=== PATIENT | female | born 1950 | race Caucasian/White ===

== ENCOUNTER 2017-06-27 19:24 | Emergency (ER) | payer MEDICARE, MEDICAID ==
[~2017-06-27] VITALS: Ht 5032.2 cm; Wt 70.5 kg
[2017-06-27 20:12] LABS: BASOPHILS # (AUTO) 0.1 X10'3 (0-0.2); BASOPHILS % (AUTO) 0.4 % (0-1); EOSINOPHILS # (AUTO) 0.2 X10'3 (0-0.9); EOSINOPHILS % (AUTO) 1.4 % (0-6); HEMATOCRIT 37.2 % (35.0-45.0); HEMOGLOBIN 12.3 g/dl (12.0-16.0); LYMPHOCYTES % (AUTO) 45.8 % (21-51); MEAN CORPUSCULAR HEMOGLOBIN 27.4 PG (27.0-31.0); MEAN CORPUSCULAR HGB CONC 33.2 % (33.0-36.5); MEAN CORPUSCULAR VOLUME 82.5 FL (78-98); MEAN PLATELET VOLUME 10.4 FL (7.4-10.4); MONOCYTES # (AUTO) 1.1 X10'3 (0-0.9); MONOCYTES % (AUTO) 8.7 % (2-12); NEUTROPHILS # (AUTO) 5.7 X10'3 (1.8-7.7); NEUTROPHILS % (AUTO) 43.7 % (42-75); PLATELET COUNT 296 X10'3 (140-440); RED BLOOD COUNT 4.51 X10'6 (4.20-5.60); RED CELL DISTRIBUTION WIDTH 14.7 % (11.5-14.5)
[2017-06-27 20:28] LABS: ALANINE AMINOTRANSFERASE 34 U/L (12-78); ALBUMIN 3.5 G/DL (3.4-5.0); ALBUMIN/GLOBULIN RATIO 0.9 (1.1-1.5); ALKALINE PHOSPHATASE 126 IU/L (46-116); ANION GAP 11 (8-16); ASPARTATE AMINO TRANSFERASE 18 U/L (10-37); BILIRUBIN,TOTAL 0.2 MG/DL (0.1-1.0); BLOOD UREA NITROGEN 19 MG/DL (7-18); BUN/CREATININE RATIO 19.4 (6.6-38.0); CALCIUM 8.9 MG/DL (8.5-10.1); CHLORIDE 106 MMOL/L (99-107); CREATININE 0.98 MG/DL (0.40-0.90); GLUCOSE 95 MG/DL (70-104); POTASSIUM 3.4 MMOL/L (3.5-5.1); SODIUM 143 MMOL/L (135-145); TOTAL CARBON DIOXIDE 26.3 MMOL/L (24-32); TOTAL PROTEIN 7.5 G/DL (6.4-8.2); eGFR 57 ML/MIN
[2017-06-27 20:29] LABS: CLARITY,URINE CLEAR (Clear); COLOR,URINE YELLOW (Yellow); GLUCOSE, URINE NEGATIVE (Neg); KETONES,URINE NEGATIVE (Neg); LEUKOCYTE ESTERASE ,URINE NEGATIVE (Neg); NITRITES, URINE NEGATIVE (Neg); OCCULT BLOOD,URINE SMALL (Neg); PROTEIN,URINE 30 mg/dl (Neg); UROBILINOGEN,URINE 0.2 E.U/dL (0.2-1.0)
[2017-06-27 20:33] LABS: UA COLLECTION TYPE CLN CATCH MIDSTREAM
[2017-06-27 20:37] LABS: AMORPHOUS URATES 1+; BACTERIA,URINE FEW /HPF (Neg); MUCUS STRANDS NONE SEEN /LPF (Neg); SQUAMOUS EPITHELIAL CELL,UR FEW /LPF (FEW); WBC,URINE 0-4 /HPF (0-4)
[2017-06-27] MEDS ORDERED: NITR100C6 PO (20:37)
[2017-06-27] MEDS ORDERED: nitrofuran/nitrofuran macrocrysal 100 MG capsule PO ONE (20:40)
[2017-06-27 20:51] VITALS: BP 145/65
== END 2017-06-27 20:52 | disposition home or self-care (01) ==
LOC: ER 19:24
DX: R31.9 Hematuria, unspecified (principal); R35.0 Frequency of micturition; E78.00 Pure hypercholesterolemia, unspecified; I10 Essential (primary) hypertension; Z88.5 Allergy status to narcotic agent; Z88.0 Allergy status to penicillin
CPT/HCPCS: 36415; 80053; 81001; 85025; 99284

== ENCOUNTER 2017-12-26 04:56 | Emergency (ER) | payer MEDICARE, MEDICAID ==
[~2017-12-26] VITALS: Ht 154.9 cm; Wt 70.0 kg
[~2017-12-26 04:56] MED LIST: NITR100C6 PO
[2017-12-26 04:59] VITALS: BP 158/95
[2017-12-26 05:33] LABS: URINE AMPHETAMINE SCREEN NEGATIVE (Neg); URINE BARBITUATE SCREEN NEGATIVE (Neg); URINE BENZODIAZEPINES SCREEN NEGATIVE (Neg); URINE CANNABINOID SCREEN NEGATIVE (Neg); URINE COCAINE SCREEN NEGATIVE (Neg); URINE METHADONE SCREEN NEGATIVE (Neg); URINE OPIATE SCREEN NEGATIVE (Neg); URINE PHENCYCLIDINE SCREEN NEGATIVE (Neg)
[2017-12-26 05:49] LABS: CLARITY,URINE CLEAR (Clear); COLOR,URINE YELLOW (Yellow); GLUCOSE, URINE NEGATIVE (Neg); KETONES,URINE NEGATIVE (Neg); LEUKOCYTE ESTERASE ,URINE TRACE (Neg); NITRITES, URINE NEGATIVE (Neg); OCCULT BLOOD,URINE TRACE-LYSED (Neg); PH,URINE 5.5 (4.8-8.0); PROTEIN,URINE 100 mg/dl (Neg); UROBILINOGEN,URINE 0.2 E.U/dL (0.2-1.0)
[2017-12-26 05:50] LABS: UA COLLECTION TYPE CLN CATCH MIDSTREAM
[2017-12-26 06:01] LABS: BACTERIA,URINE FEW /HPF (Neg); RBC,URINE 0-2 /HPF (0-2)
[2017-12-26 06:02] LABS: CAL OXALATE CRYSTALS 3+ /HPF (NEGATIVE); MUCUS STRANDS MANY /LPF (Neg); SQUAMOUS EPITHELIAL CELL,UR FEW /LPF (FEW)
== END 2017-12-26 05:41 | disposition left against medical advice (07) ==
LOC: ER 04:56
DX: G89.29 Other chronic pain (principal); N23 Unspecified renal colic; Z59.0 Homelessness; E78.00 Pure hypercholesterolemia, unspecified; I10 Essential (primary) hypertension; Z87.442 Personal history of urinary calculi; Z87.440 Personal history of urinary (tract) infections; Z88.0 Allergy status to penicillin; Z88.6 Allergy status to analgesic agent
CPT/HCPCS: 80305; 81001; 87088; 99284

== ENCOUNTER 2017-12-27 22:24 | Emergency (ER) | payer MEDICARE, MEDICAID ==
[~2017-12-27] VITALS: Ht 154.9 cm; Wt 80.6 kg
[2017-12-27 23:54] LABS: CLARITY,URINE CLEAR (Clear); COLOR,URINE YELLOW (Yellow); GLUCOSE, URINE NEGATIVE (Neg); KETONES,URINE NEGATIVE (Neg); LEUKOCYTE ESTERASE ,URINE SMALL (Neg); NITRITES, URINE NEGATIVE (Neg); OCCULT BLOOD,URINE TRACE-LYSED (Neg); PROTEIN,URINE 100 mg/dl (Neg); UROBILINOGEN,URINE 0.2 E.U/dL (0.2-1.0)
[2017-12-28 00:01] LABS: UA COLLECTION TYPE CLN CATCH MIDSTREAM
[2017-12-28 00:03] LABS: BACTERIA,URINE FEW /HPF (Neg); RBC,URINE NONE SEEN /HPF (0-2); SQUAMOUS EPITHELIAL CELL,UR FEW /LPF (FEW)
[2017-12-28] MEDS ORDERED: CEPH-572 PO (00:07)
[2017-12-28] MEDS ORDERED: cephalexin 250mg capsule PO ONE (00:10)
[2017-12-28 00:18] VITALS: BP 170/98
== END 2017-12-28 00:19 | disposition home or self-care (01) ==
LOC: ER 22:27
DX: N39.0 Urinary tract infection, site not specified (principal); E78.00 Pure hypercholesterolemia, unspecified; I10 Essential (primary) hypertension; Z87.442 Personal history of urinary calculi; Z59.0 Homelessness; Z56.0 Unemployment, unspecified; Z88.5 Allergy status to narcotic agent; Z88.0 Allergy status to penicillin; Z79.899 Other long term (current) drug therapy
CPT/HCPCS: 81001; 81003; 87088; 99284

== ENCOUNTER 2018-01-24 19:52 | Emergency (ER) | payer MEDICARE, MEDICAID ==
[~2018-01-24] VITALS: Ht 152.4 cm; Wt 76.0 kg
[2018-01-24 20:45] LABS: CLARITY,URINE CLEAR (Clear); COLOR,URINE YELLOW (Yellow); GLUCOSE, URINE NEGATIVE (Neg); KETONES,URINE NEGATIVE (Neg); LEUKOCYTE ESTERASE ,URINE NEGATIVE (Neg); NITRITES, URINE NEGATIVE (Neg); OCCULT BLOOD,URINE TRACE-LYSED (Neg); PROTEIN,URINE 100 mg/dl (Neg); UROBILINOGEN,URINE 0.2 E.U/dL (0.2-1.0)
[2018-01-24 20:47] LABS: UA COLLECTION TYPE CLN CATCH MIDSTREAM
[2018-01-24 20:55] LABS: BACTERIA,URINE FEW /HPF (Neg)
[2018-01-24 20:56] LABS: FINE GRANULAR CAST 0-3 /LPF (NEGATIVE); MUCUS STRANDS MANY /LPF (Neg); SQUAMOUS EPITHELIAL CELL,UR FEW /LPF (FEW)
[2018-01-24] MEDS ORDERED: SULF1TAB49 PO (21:04)
[2018-01-24 21:16] VITALS: BP 173/91
[2018-01-25] MEDS ORDERED: SULF1TAB49 PO (11:19)
== END 2018-01-24 21:17 | disposition home or self-care (01) ==
LOC: ER 19:52
DX: N39.0 Urinary tract infection, site not specified (principal); Z87.442 Personal history of urinary calculi; I10 Essential (primary) hypertension; E78.00 Pure hypercholesterolemia, unspecified; Z88.5 Allergy status to narcotic agent; Z88.0 Allergy status to penicillin; Z79.899 Other long term (current) drug therapy; Z59.0 Homelessness; Z56.0 Unemployment, unspecified
CPT/HCPCS: 81001; 87088; 99284

== ENCOUNTER 2018-01-25 08:23 | Emergency (ER) | payer MEDICARE, MEDICAID ==
[~2018-01-25] VITALS: Ht 152.4 cm; Wt 75.0 kg
[~2018-01-25 08:23] MED LIST changes: +SULF1TAB49 PO
[2018-01-25 09:00] LABS: BASOPHILS % (AUTO) 0.4 % (0-1); EOSINOPHILS # (AUTO) 0.5 X10'3 (0-0.9); EOSINOPHILS % (AUTO) 5.3 % (0-6); HEMATOCRIT 39.6 % (35.0-45.0); HEMOGLOBIN 12.9 g/dl (12.0-16.0); LYMPHOCYTES # (AUTO) 2.7 X10'3 (1.1-4.8); LYMPHOCYTES % (AUTO) 26.8 % (21-51); MEAN CORPUSCULAR HEMOGLOBIN 27.1 PG (27.0-31.0); MEAN CORPUSCULAR HGB CONC 32.6 % (33.0-36.5); MEAN PLATELET VOLUME 10.1 FL (7.4-10.4); MONOCYTES # (AUTO) 0.7 X10'3 (0-0.9); MONOCYTES % (AUTO) 6.8 % (2-12); NEUTROPHILS # (AUTO) 6.1 X10'3 (1.8-7.7); NEUTROPHILS % (AUTO) 60.7 % (42-75); PLATELET COUNT 336 X10'3 (140-440); RED BLOOD COUNT 4.76 X10'6 (4.20-5.60); RED CELL DISTRIBUTION WIDTH 14.4 % (11.5-14.5); WHITE BLOOD COUNT 10.1 X10'3 (4.5-11.0)
[2018-01-25 09:11] LABS: PROTHROMBIN TIME 10.3 SECONDS (9.0-12.0)
[2018-01-25 09:15] LABS: ALANINE AMINOTRANSFERASE 32 U/L (12-78); ALBUMIN 3.5 G/DL (3.4-5.0); ALBUMIN/GLOBULIN RATIO 0.8 (1.1-1.5); ALKALINE PHOSPHATASE 128 IU/L (46-116); ANION GAP 11 (8-16); ASPARTATE AMINO TRANSFERASE 26 U/L (10-37); BILIRUBIN,TOTAL 0.4 MG/DL (0.1-1.0); BLOOD UREA NITROGEN 14 MG/DL (7-18); BUN/CREATININE RATIO 17.3 (6.6-38.0); CALCIUM 8.8 MG/DL (8.5-10.1); CHLORIDE 104 MMOL/L (99-107); CREATININE 0.81 MG/DL (0.40-0.90); GLUCOSE 149 MG/DL (70-104); LIPASE 200 U/L (73-393); POTASSIUM 3.2 MMOL/L (3.5-5.1); SODIUM 142 MMOL/L (135-145); TOTAL CARBON DIOXIDE 27.3 MMOL/L (24-32); TOTAL PROTEIN 7.7 G/DL (6.4-8.2); eGFR 70 ML/MIN
[2018-01-25 09:16] LABS: HCG SERUM QL NEGATIVE
[2018-01-25 09:28] LABS: CLARITY,URINE SLIGHTLY CLOUDY (Clear); COLOR,URINE STRAW (Yellow); GLUCOSE, URINE NEGATIVE (Neg); KETONES,URINE NEGATIVE (Neg); LEUKOCYTE ESTERASE ,URINE NEGATIVE (Neg); NITRITES, URINE NEGATIVE (Neg); OCCULT BLOOD,URINE TRACE-INTACT (Neg); PROTEIN,URINE 100 mg/dl (Neg); UROBILINOGEN,URINE 0.2 E.U/dL (0.2-1.0)
[2018-01-25 09:29] LABS: UA COLLECTION TYPE NON-SPECIFIED
[2018-01-25 09:33] LABS: HYALINE CASTS 0-3 /LPF (NEGATIVE); MUCUS STRANDS FEW /LPF (Neg)
[2018-01-25 09:34] LABS: BACTERIA,URINE 1+ /HPF (Neg); RBC,URINE 0-2 /HPF (0-2); SQUAMOUS EPITHELIAL CELL,UR MODERATE /LPF (FEW)
[2018-01-25 10:43] VITALS: BP 161/70
[2018-01-25] MEDS ORDERED: SULF1TAB49 PO (11:19)
== END 2018-01-25 11:33 | disposition home or self-care (01) ==
LOC: ER 08:24
DX: N39.0 Urinary tract infection, site not specified (principal); E78.00 Pure hypercholesterolemia, unspecified; I10 Essential (primary) hypertension; Z59.0 Homelessness; Z56.0 Unemployment, unspecified; Z88.5 Allergy status to narcotic agent; Z88.0 Allergy status to penicillin; Z79.2 Long term (current) use of antibiotics; Z79.899 Other long term (current) drug therapy
CPT/HCPCS: 36415; 80053; 81001; 83690; 84703; 85025; 85610; 87088; 99284

== ENCOUNTER 2018-01-27 18:50 | Emergency (ER) | payer MEDICARE, MEDICAID ==
[~2018-01-27] VITALS: Ht 162.6 cm; Wt 73.5 kg
[2018-01-27 19:04] VITALS: BP 127/62
[2018-01-27 19:53] LABS: CLARITY,URINE SLIGHTLY CLOUDY (Clear); COLOR,URINE YELLOW (Yellow); GLUCOSE, URINE NEGATIVE (Neg); KETONES,URINE NEGATIVE (Neg); LEUKOCYTE ESTERASE ,URINE TRACE (Neg); OCCULT BLOOD,URINE TRACE-INTACT (Neg); PH,URINE 5.5 (4.8-8.0); PROTEIN,URINE 100 mg/dl (Neg)
[2018-01-27 20:01] LABS: NITRITES, URINE NEGATIVE (Neg); UA COLLECTION TYPE CLN CATCH MIDSTREAM
[2018-01-27 20:02] LABS: BACTERIA,URINE FEW /HPF (Neg); RBC,URINE 0-2 /HPF (0-2); SQUAMOUS EPITHELIAL CELL,UR FEW /LPF (FEW)
== END 2018-01-27 21:09 | disposition home or self-care (01) ==
LOC: ER 18:51
DX: T73.0XXA Starvation, initial encounter (principal); E78.00 Pure hypercholesterolemia, unspecified; I10 Essential (primary) hypertension; Z59.0 Homelessness; Z56.0 Unemployment, unspecified; Z88.5 Allergy status to narcotic agent; Z88.0 Allergy status to penicillin; Z79.899 Other long term (current) drug therapy; X58.XXXA Exposure to other specified factors, initial encounter
CPT/HCPCS: 81001; 87077; 87088; 99284

== ENCOUNTER 2018-02-02 12:50 | Emergency (ER) | payer MEDICARE, MEDICAID ==
[~2018-02-02] VITALS: Ht 152.4 cm; Wt 70.5 kg
[2018-02-02 13:03] VITALS: BP 142/77
[2018-02-02 14:05] LABS: CLARITY,URINE SLIGHTLY CLOUDY (Clear); COLOR,URINE YELLOW (Yellow); GLUCOSE, URINE NEGATIVE (Neg); KETONES,URINE TRACE mg/dl (Neg); LEUKOCYTE ESTERASE ,URINE NEGATIVE (Neg); NITRITES, URINE NEGATIVE (Neg); OCCULT BLOOD,URINE TRACE-INTACT (Neg); PROTEIN,URINE 100 mg/dl (Neg); UROBILINOGEN,URINE 0.2 E.U/dL (0.2-1.0)
[2018-02-02 14:16] LABS: UA COLLECTION TYPE CLN CATCH MIDSTREAM
[2018-02-02 14:36] LABS: CAL OXALATE CRYSTALS 4+ /HPF (NEGATIVE); HYALINE CASTS 0-3 /LPF (NEGATIVE)
[2018-02-02 14:38] LABS: BACTERIA,URINE FEW /HPF (Neg); MUCUS STRANDS FEW /LPF (Neg); RBC,URINE NONE SEEN /HPF (0-2); SQUAMOUS EPITHELIAL CELL,UR FEW /LPF (FEW); WBC,URINE 0-4 /HPF (0-4)
== END 2018-02-02 14:41 | disposition home or self-care (01) ==
LOC: ER 12:51
DX: E86.0 Dehydration (principal); I10 Essential (primary) hypertension; E78.00 Pure hypercholesterolemia, unspecified; Z59.0 Homelessness; Z56.0 Unemployment, unspecified; Z88.6 Allergy status to analgesic agent; Z88.0 Allergy status to penicillin
CPT/HCPCS: 81001; 99284

== ENCOUNTER 2018-02-03 16:53 | Emergency (ER) | payer MEDICARE, MEDICAID ==
[~2018-02-03] VITALS: Ht 154.9 cm; Wt 74.9 kg
[~2018-02-03 16:53] MED LIST changes: -SULF1TAB49 PO
[2018-02-03 16:57] VITALS: BP 106/58
[2018-02-03 19:15] LABS: CLARITY,URINE SLIGHTLY CLOUDY (Clear); GLUCOSE, URINE NEGATIVE (Neg); KETONES,URINE TRACE mg/dl (Neg); LEUKOCYTE ESTERASE ,URINE NEGATIVE (Neg); NITRITES, URINE NEGATIVE (Neg); OCCULT BLOOD,URINE NEGATIVE (Neg); PH,URINE 5.5 (4.8-8.0); PROTEIN,URINE 100 mg/dl (Neg); UROBILINOGEN,URINE 0.2 E.U/dL (0.2-1.0)
[2018-02-03 19:21] LABS: UA COLLECTION TYPE CLN CATCH MIDSTREAM
[2018-02-03 19:22] LABS: COLOR,URINE DARK YELLOW (Yellow)
[2018-02-03 19:26] LABS: SQUAMOUS EPITHELIAL CELL,UR MODERATE /LPF (FEW)
[2018-02-03 19:27] LABS: AMORPHOUS URATES 1+; BACTERIA,URINE FEW /HPF (Neg)
[2018-02-03 19:28] LABS: RBC,URINE NONE SEEN /HPF (0-2)
== END 2018-02-03 20:02 | disposition home or self-care (01) ==
LOC: ER 16:53
DX: R35.8 Other polyuria (principal); E78.00 Pure hypercholesterolemia, unspecified; I10 Essential (primary) hypertension; Z76.5 Malingerer [conscious simulation]; Z87.442 Personal history of urinary calculi; Z59.0 Homelessness; Z56.0 Unemployment, unspecified; Z87.440 Personal history of urinary (tract) infections; Z88.5 Allergy status to narcotic agent; Z88.0 Allergy status to penicillin
CPT/HCPCS: 81001; 87077; 87088; 87186; 99284

== ENCOUNTER 2018-02-13 14:18 | Emergency (ER) | payer MEDICARE, MEDICAID ==
[2018-02-13 14:28] VITALS: BP 152/77
[2018-02-13] MEDS ORDERED: PERM60CR19 TP (14:45)
== END 2018-02-13 15:07 | disposition home or self-care (01) ==
LOC: ER 14:18
DX: G89.29 Other chronic pain (principal); M54.9 Dorsalgia, unspecified; B85.0 Pediculosis due to Pediculus humanus capitis; E78.00 Pure hypercholesterolemia, unspecified; I10 Essential (primary) hypertension; Z87.442 Personal history of urinary calculi; Z56.0 Unemployment, unspecified; Z59.0 Homelessness
CPT/HCPCS: 99283

== ENCOUNTER 2018-02-21 09:21 | Emergency (ER) | payer MEDICARE, MEDICAID ==
[~2018-02-21] VITALS: Ht 160 cm; Wt 68.2 kg
[~2018-02-21 09:21] MED LIST changes: +PERM60CR19 TP
[2018-02-21 09:24] VITALS: BP 124/62
[2018-02-21] MEDS ORDERED: Permethrin 1% 59ml topical rinse TP ONE (10:20)
[2018-02-21] MEDS ORDERED: PERM60CR19 TP (12:32)
[2018-02-22] MEDS ORDERED: DIPH-423 PO (11:44)
== END 2018-02-21 12:48 | disposition home or self-care (01) ==
LOC: ER 09:22
DX: B85.0 Pediculosis due to Pediculus humanus capitis (principal); E78.00 Pure hypercholesterolemia, unspecified; I10 Essential (primary) hypertension; Z59.0 Homelessness; Z56.0 Unemployment, unspecified; Z87.442 Personal history of urinary calculi; Z88.5 Allergy status to narcotic agent; Z88.0 Allergy status to penicillin; Z79.899 Other long term (current) drug therapy
CPT/HCPCS: 99283

== ENCOUNTER 2018-02-22 11:28 | Emergency (ER) | payer MEDICARE, MEDICAID ==
[~2018-02-22] VITALS: Ht 152.4 cm; Wt 72.0 kg
[2018-02-22 11:33] VITALS: BP 158/76
[2018-02-22] MEDS ORDERED: DIPH-423 PO (11:44)
== END 2018-02-22 11:53 | disposition home or self-care (01) ==
LOC: ER 11:29
DX: R21 Rash and other nonspecific skin eruption (principal); B86 Scabies; E78.00 Pure hypercholesterolemia, unspecified; I10 Essential (primary) hypertension; Z59.0 Homelessness; Z56.0 Unemployment, unspecified; Z87.442 Personal history of urinary calculi; Z88.5 Allergy status to narcotic agent; Z88.0 Allergy status to penicillin
CPT/HCPCS: 99282

== ENCOUNTER 2018-03-01 09:21 | Emergency (ER) | payer MEDICARE, MEDICAID ==
[~2018-03-01] VITALS: Ht 152.4 cm; Wt 73.1 kg
[~2018-03-01 09:21] MED LIST changes: +DIPH-423 PO
[2018-03-01 09:24] VITALS: BP 138/68
[2018-03-01 09:48] LABS: CLARITY,URINE CLEAR (Clear); COLOR,URINE YELLOW (Yellow); GLUCOSE, URINE NEGATIVE (Neg); KETONES,URINE NEGATIVE (Neg); LEUKOCYTE ESTERASE ,URINE TRACE (Neg); NITRITES, URINE NEGATIVE (Neg); OCCULT BLOOD,URINE NEGATIVE (Neg); PROTEIN,URINE 30 mg/dl (Neg); UROBILINOGEN,URINE 0.2 E.U/dL (0.2-1.0)
[2018-03-01 09:53] LABS: UA COLLECTION TYPE CLN CATCH MIDSTREAM
[2018-03-01 09:55] LABS: RBC,URINE NONE SEEN /HPF (0-2)
[2018-03-01 09:56] LABS: BACTERIA,URINE FEW /HPF (Neg); SQUAMOUS EPITHELIAL CELL,UR FEW /LPF (FEW)
[2018-03-01] MEDS ORDERED: SULF1TAB49 PO (10:34)
[2018-03-01] MEDS ORDERED: PERM60CR19 TP (10:34)
== END 2018-03-01 10:56 | disposition home or self-care (01) ==
LOC: ER 09:21
DX: N39.0 Urinary tract infection, site not specified (principal); B85.0 Pediculosis due to Pediculus humanus capitis; I10 Essential (primary) hypertension; E78.00 Pure hypercholesterolemia, unspecified; Z87.442 Personal history of urinary calculi; Z88.6 Allergy status to analgesic agent; Z88.0 Allergy status to penicillin; Z56.0 Unemployment, unspecified; Z59.0 Homelessness; Z60.2 Problems related to living alone; Z87.440 Personal history of urinary (tract) infections
CPT/HCPCS: 81001; 87088; 99284

== ENCOUNTER 2018-03-14 14:02 | Emergency (ER) | payer MEDICARE, MEDICAID ==
[~2018-03-14] VITALS: Ht 157.5 cm; Wt 113.6 kg
[2018-03-14 14:15] VITALS: BP 130/60
== END 2018-03-14 15:06 | disposition home or self-care (01) ==
LOC: ER 14:03
DX: R06.02 Shortness of breath (principal); L98.8 Other specified disorders of the skin and subcutaneous tissue; E78.00 Pure hypercholesterolemia, unspecified; I10 Essential (primary) hypertension; Z87.442 Personal history of urinary calculi; Z59.0 Homelessness; Z56.0 Unemployment, unspecified; Z88.5 Allergy status to narcotic agent; Z88.0 Allergy status to penicillin
CPT/HCPCS: 93005; 99283

== ENCOUNTER 2018-03-14 16:12 | Emergency (ER) | payer MEDICARE, MEDICAID ==
[~2018-03-14] VITALS: Ht 154.9 cm; Wt 45.8 kg
[2018-03-14 16:25] VITALS: BP 121/60
== END 2018-03-14 16:36 | disposition home or self-care (01) ==
LOC: ER 16:13
DX: R06.02 Shortness of breath (principal); E78.00 Pure hypercholesterolemia, unspecified; I10 Essential (primary) hypertension; Z87.442 Personal history of urinary calculi; Z59.0 Homelessness; Z56.0 Unemployment, unspecified; Z88.5 Allergy status to narcotic agent; Z88.0 Allergy status to penicillin; Z79.899 Other long term (current) drug therapy
CPT/HCPCS: 99283

== ENCOUNTER 2018-04-01 16:24 | Emergency (ER) | payer MEDICARE, MEDICAID ==
[~2018-04-01] VITALS: Ht 152.4 cm; Wt 71.6 kg
[2018-04-01 18:11] LABS: ALANINE AMINOTRANSFERASE 27 U/L (12-78); ALBUMIN 3.3 G/DL (3.4-5.0); ALBUMIN/GLOBULIN RATIO 0.7 (1.1-1.5); ALKALINE PHOSPHATASE 112 IU/L (46-116); ANION GAP 17 (8-16); BILIRUBIN,TOTAL 0.2 MG/DL (0.1-1.0); BLOOD UREA NITROGEN 22 MG/DL (7-18); BUN/CREATININE RATIO 21.6 (6.6-38.0); CALCIUM 9.4 MG/DL (8.5-10.1); CHLORIDE 102 MMOL/L (99-107); CREATININE 1.02 MG/DL (0.40-0.90); GLUCOSE 106 MG/DL (70-104); SODIUM 146 MMOL/L (135-145); TOTAL CARBON DIOXIDE 26.9 MMOL/L (24-32); TOTAL PROTEIN 8.1 G/DL (6.4-8.2); eGFR 54 ML/MIN
[2018-04-01 18:14] LABS: POTASSIUM 4.6 MMOL/L (3.5-5.1)
[2018-04-01 18:22] LABS: ASPARTATE AMINO TRANSFERASE 30 U/L (10-37)
[2018-04-01 18:47] LABS: BASOPHILS # (AUTO) 0.1 X10'3 (0-0.2); BASOPHILS % (AUTO) 0.5 % (0-1); EOSINOPHILS # (AUTO) 0.5 X10'3 (0-0.9); EOSINOPHILS % (AUTO) 2.5 % (0-6); HEMATOCRIT 37.7 % (35.0-45.0); HEMOGLOBIN 12.1 g/dl (12.0-16.0); LYMPHOCYTES # (AUTO) 3.6 X10'3 (1.1-4.8); LYMPHOCYTES % (AUTO) 19.9 % (21-51); MEAN CORPUSCULAR HEMOGLOBIN 26.4 PG (27.0-31.0); MEAN CORPUSCULAR VOLUME 82.6 FL (78-98); MEAN PLATELET VOLUME 10.2 FL (7.4-10.4); MONOCYTES # (AUTO) 1.2 X10'3 (0-0.9); MONOCYTES % (AUTO) 6.4 % (2-12); NEUTROPHILS # (AUTO) 12.7 X10'3 (1.8-7.7); NEUTROPHILS % (AUTO) 70.7 % (42-75); PLATELET COUNT 330 X10'3 (140-440); RED BLOOD COUNT 4.56 X10'6 (4.20-5.60); RED CELL DISTRIBUTION WIDTH 14.5 % (11.5-14.5); WHITE BLOOD COUNT 17.9 X10'3 (4.5-11.0)
[2018-04-01 19:40] LABS: CLARITY,URINE CLEAR (Clear); COLOR,URINE YELLOW (Yellow); GLUCOSE, URINE NEGATIVE (Neg); KETONES,URINE NEGATIVE (Neg); LEUKOCYTE ESTERASE ,URINE NEGATIVE (Neg); NITRITES, URINE NEGATIVE (Neg); OCCULT BLOOD,URINE NEGATIVE (Neg); PH,URINE 5.5 (4.8-8.0); PROTEIN,URINE 100 mg/dl (Neg); UROBILINOGEN,URINE 0.2 E.U/dL (0.2-1.0)
[2018-04-01 19:42] LABS: UA COLLECTION TYPE CLN CATCH MIDSTREAM
[2018-04-01 20:55] LABS: MUCUS STRANDS MANY /LPF (Neg); SQUAMOUS EPITHELIAL CELL,UR FEW /LPF (FEW)
[2018-04-01 20:56] LABS: BACTERIA,URINE NONE SEEN /HPF (Neg); CAL OXALATE CRYSTALS 1+ /HPF (NEGATIVE); RBC,URINE NONE SEEN /HPF (0-2); WBC,URINE 0-4 /HPF (0-4)
[2018-04-01 21:33] VITALS: BP 147/91
== END 2018-04-01 21:33 | disposition home or self-care (01) ==
LOC: ER 16:24
DX: N93.9 Abnormal uterine and vaginal bleeding, unspecified (principal); J02.9 Acute pharyngitis, unspecified; M54.9 Dorsalgia, unspecified; E78.00 Pure hypercholesterolemia, unspecified; I10 Essential (primary) hypertension; I25.2 Old myocardial infarction; J44.9 Chronic obstructive pulmonary disease, unspecified; Z98.890 Other specified postprocedural states; Z60.2 Problems related to living alone; Z59.0 Homelessness; Z56.0 Unemployment, unspecified; Z88.5 Allergy status to narcotic agent; Z88.0 Allergy status to penicillin; Z79.899 Other long term (current) drug therapy
CPT/HCPCS: 36415; 71045; 80053; 81001; 85025; 99284

== ENCOUNTER 2018-04-08 17:39 | Emergency (ER) | payer MEDICARE, MEDICAID ==
[~2018-04-08] VITALS: Ht 152.4 cm; Wt 71.5 kg
[~2018-04-08 17:39] MED LIST changes: -PERM60CR19 TP
[2018-04-08 17:55] VITALS: BP 135/84
[2018-04-08] MEDS ORDERED: AZIT250T PO (18:13)
== END 2018-04-08 18:36 | disposition home or self-care (01) ==
LOC: ER 17:40
DX: J02.9 Acute pharyngitis, unspecified (principal); E78.00 Pure hypercholesterolemia, unspecified; I10 Essential (primary) hypertension; I25.2 Old myocardial infarction; J44.9 Chronic obstructive pulmonary disease, unspecified; Z98.890 Other specified postprocedural states; Z59.0 Homelessness; Z56.0 Unemployment, unspecified; Z90.89 Acquired absence of other organs; Z87.442 Personal history of urinary calculi; Z88.5 Allergy status to narcotic agent; Z88.0 Allergy status to penicillin
CPT/HCPCS: 99283

== ENCOUNTER 2018-04-14 14:56 | Emergency (ER) | payer MEDICARE, MEDICAID ==
[~2018-04-14] VITALS: Ht 152.4 cm; Wt 70.5 kg
[~2018-04-14 14:56] MED LIST changes: +AZIT250T PO
[2018-04-14 15:00] VITALS: BP 121/61
== END 2018-04-14 15:41 | disposition home or self-care (01) ==
LOC: ER 14:56
DX: J02.9 Acute pharyngitis, unspecified (principal); E78.00 Pure hypercholesterolemia, unspecified; I10 Essential (primary) hypertension; I25.2 Old myocardial infarction; J44.9 Chronic obstructive pulmonary disease, unspecified; Z90.89 Acquired absence of other organs; Z88.5 Allergy status to narcotic agent; Z88.0 Allergy status to penicillin; Z79.899 Other long term (current) drug therapy; Z60.2 Problems related to living alone; Z59.0 Homelessness; Z56.0 Unemployment, unspecified
CPT/HCPCS: 99281

== ENCOUNTER 2018-05-12 21:47 | Emergency (ER) | payer MEDICARE, MEDICAID ==
[~2018-05-12] VITALS: Ht 152.4 cm; Wt 70.0 kg
[~2018-05-12 21:47] MED LIST changes: -AZIT250T PO
[2018-05-12 21:49] VITALS: BP 163/70
[2018-05-12 22:36] LABS: CLARITY,URINE CLEAR (Clear); COLOR,URINE YELLOW (Yellow); GLUCOSE, URINE NEGATIVE (Neg); KETONES,URINE NEGATIVE (Neg); LEUKOCYTE ESTERASE ,URINE NEGATIVE (Neg); NITRITES, URINE NEGATIVE (Neg); OCCULT BLOOD,URINE NEGATIVE (Neg); PH,URINE 5.5 (4.8-8.0); PROTEIN,URINE 100 mg/dl (Neg); UA COLLECTION TYPE CLN CATCH MIDSTREAM; UROBILINOGEN,URINE 0.2 E.U/dL (0.2-1.0)
[2018-05-12 22:52] LABS: AMORPHOUS URATES 1+; BACTERIA,URINE NONE SEEN /HPF (Neg); RBC,URINE 0-2 /HPF (0-2); SQUAMOUS EPITHELIAL CELL,UR FEW /LPF (FEW); WBC,URINE 0-4 /HPF (0-4)
[2018-05-12 22:53] LABS: HYALINE CASTS 0-3 /LPF (NEGATIVE)
[2018-05-12 22:54] LABS: MUCUS STRANDS MODERATE /LPF (Neg)
== END 2018-05-12 23:29 | disposition home or self-care (01) ==
LOC: ER 21:47
DX: R30.0 Dysuria (principal); R35.0 Frequency of micturition; N23 Unspecified renal colic; E78.00 Pure hypercholesterolemia, unspecified; I10 Essential (primary) hypertension; I25.2 Old myocardial infarction; J44.9 Chronic obstructive pulmonary disease, unspecified; Z88.5 Allergy status to narcotic agent; Z88.0 Allergy status to penicillin; Z79.899 Other long term (current) drug therapy; Z56.0 Unemployment, unspecified; Z59.0 Homelessness; Z60.2 Problems related to living alone
CPT/HCPCS: 81001; 99283

== ENCOUNTER 2018-05-20 11:21 | Emergency (ER) | payer MEDICARE, MEDICAID ==
--- NOTE | 2018-05-20 12:51 | NUR ---
NIL X3 CHART GIVEN TO CARRILLO CALDWELL
--- NOTE | 2018-05-20 12:54 | NUR ---
PROVIDER NOTIFIES OF PT NIL X3, HERE FOR HAND PAIN. NO FURTHER ACTION REQUESTED BY PROVIER
[2018-05-20] MEDS ORDERED: IBUP-1984 PO (15:17)
== END 2018-05-20 12:55 | disposition left against medical advice (07) ==
LOC: ER 11:21
DX: M79.643 Pain in unspecified hand (principal); Z53.21 Procedure and treatment not carried out due to patient leaving prior to being seen by health care provider

== ENCOUNTER 2018-05-21 19:44 | Emergency (ER) | payer MEDICARE, MEDICAID ==
[~2018-05-21] VITALS: Ht 152.4 cm; Wt 64.0 kg
[~2018-05-21 19:44] MED LIST changes: +IBUP-1984 PO
[2018-05-21 20:05] VITALS: BP 155/60
[2018-05-21 20:26] LABS: CLARITY,URINE CLEAR (Clear); COLOR,URINE YELLOW (Yellow); GLUCOSE, URINE NEGATIVE (Neg); KETONES,URINE NEGATIVE (Neg); LEUKOCYTE ESTERASE ,URINE NEGATIVE (Neg); NITRITES, URINE NEGATIVE (Neg); OCCULT BLOOD,URINE TRACE-INTACT (Neg); PROTEIN,URINE 30 mg/dl (Neg); UROBILINOGEN,URINE 0.2 E.U/dL (0.2-1.0)
[2018-05-21 20:42] LABS: UA COLLECTION TYPE CLN CATCH MIDSTREAM
[2018-05-21 20:43] LABS: BACTERIA,URINE FEW /HPF (Neg); RBC,URINE 0-2 /HPF (0-2); SQUAMOUS EPITHELIAL CELL,UR FEW /LPF (FEW); WBC,URINE 0-4 /HPF (0-4)
== END 2018-05-21 23:18 | disposition home or self-care (01) ==
LOC: ER 19:45
DX: R30.0 Dysuria (principal); I10 Essential (primary) hypertension; E78.00 Pure hypercholesterolemia, unspecified; I25.2 Old myocardial infarction; J44.9 Chronic obstructive pulmonary disease, unspecified; Z59.0 Homelessness; Z56.0 Unemployment, unspecified; Z88.6 Allergy status to analgesic agent; Z88.0 Allergy status to penicillin
CPT/HCPCS: 81001; 99283

== ENCOUNTER 2018-05-31 21:04 | Emergency (ER) | payer MEDICARE, MEDICAID ==
[~2018-05-31] VITALS: Ht 152.4 cm; Wt 70.0 kg
[2018-05-31 21:07] VITALS: BP 162/72
[2018-05-31] MEDS ORDERED: mag hydrox/Alum hydrox/simeth 30ml oral suspension PO ONE (22:05)
== END 2018-05-31 22:30 | disposition home or self-care (01) ==
LOC: ER 21:05
DX: R10.9 Unspecified abdominal pain (principal); E78.00 Pure hypercholesterolemia, unspecified; I10 Essential (primary) hypertension; I25.2 Old myocardial infarction; J44.9 Chronic obstructive pulmonary disease, unspecified; Z87.442 Personal history of urinary calculi; Z98.890 Other specified postprocedural states; Z59.0 Homelessness; Z56.0 Unemployment, unspecified; Z88.0 Allergy status to penicillin; Z88.5 Allergy status to narcotic agent
CPT/HCPCS: 99282

== ENCOUNTER 2018-06-02 21:01 | Emergency (ER) | payer MEDICARE, MEDICAID ==
[~2018-06-02] VITALS: Ht 152.4 cm; Wt 70.5 kg
[~2018-06-02 21:01] MED LIST changes: -IBUP-1984 PO
[2018-06-02 22:03] LABS: BASOPHILS % (AUTO) 0.3 % (0-1); EOSINOPHILS # (AUTO) 0.2 X10'3 (0-0.9); EOSINOPHILS % (AUTO) 1.3 % (0-6); HEMATOCRIT 35.3 % (35.0-45.0); HEMOGLOBIN 11.4 g/dl (12.0-16.0); LYMPHOCYTES # (AUTO) 3.8 X10'3 (1.1-4.8); LYMPHOCYTES % (AUTO) 24.6 % (21-51); MEAN CORPUSCULAR HEMOGLOBIN 26.4 PG (27.0-31.0); MEAN CORPUSCULAR HGB CONC 32.4 % (33.0-36.5); MEAN CORPUSCULAR VOLUME 81.7 FL (78-98); MEAN PLATELET VOLUME 9.8 FL (7.4-10.4); MONOCYTES # (AUTO) 1.3 X10'3 (0-0.9); MONOCYTES % (AUTO) 8.4 % (2-12); NEUTROPHILS % (AUTO) 65.4 % (42-75); PLATELET COUNT 345 X10'3 (140-440); RED BLOOD COUNT 4.32 X10'6 (4.20-5.60); RED CELL DISTRIBUTION WIDTH 15.7 % (11.5-14.5); WHITE BLOOD COUNT 15.3 X10'3 (4.5-11.0)
[2018-06-02 22:07] LABS: ALANINE AMINOTRANSFERASE 38 U/L (12-78); ALBUMIN 3.3 G/DL (3.4-5.0); ALBUMIN/GLOBULIN RATIO 0.8 (1.1-1.5); ALKALINE PHOSPHATASE 103 IU/L (46-116); ANION GAP 10 (8-16); ASPARTATE AMINO TRANSFERASE 24 U/L (10-37); BILIRUBIN,TOTAL 0.6 MG/DL (0.1-1.0); BLOOD UREA NITROGEN 17 MG/DL (7-18); BUN/CREATININE RATIO 21.3 (6.6-38.0); CHLORIDE 102 MMOL/L (99-107); GLUCOSE 84 MG/DL (70-104); POTASSIUM 3.1 MMOL/L (3.5-5.1); SODIUM 137 MMOL/L (135-145); TOTAL CARBON DIOXIDE 25.1 MMOL/L (24-32); TOTAL PROTEIN 7.6 G/DL (6.4-8.2); eGFR 71 ML/MIN
--- NOTE | 2018-06-02 22:36 | NUR ---
Attempted to contact family for pt hx; invalid number- disconnected.
[2018-06-02 22:39] LABS: ETHANOL < 0.010 GM/DL (0.0-0.010)
[2018-06-02 22:52] LABS: LIPASE 152 U/L (73-393)
--- NOTE | 2018-06-02 23:26 | NUR ---
ATTEMPTED TO GET URINE; PT MISSED HAT. WILL F/U W/ STRAIGHT CATH.
[2018-06-03 01:11] LABS: CLARITY,URINE CLEAR (Clear); COLOR,URINE YELLOW (Yellow); GLUCOSE, URINE NEGATIVE (Neg); KETONES,URINE NEGATIVE (Neg); LEUKOCYTE ESTERASE ,URINE NEGATIVE (Neg); NITRITES, URINE NEGATIVE (Neg); OCCULT BLOOD,URINE NEGATIVE (Neg); PROTEIN,URINE TRACE mg/dl (Neg); UROBILINOGEN,URINE 0.2 E.U/dL (0.2-1.0)
[2018-06-03 01:17] LABS: UA COLLECTION TYPE VOIDED
[2018-06-03 01:18] LABS: BACTERIA,URINE FEW /HPF (Neg); RBC,URINE NONE SEEN /HPF (0-2); SQUAMOUS EPITHELIAL CELL,UR FEW /LPF (FEW); WBC,URINE NONE SEEN /HPF (0-4)
[2018-06-03 01:23] LABS: URINE AMPHETAMINE SCREEN NEGATIVE (Neg); URINE BARBITUATE SCREEN NEGATIVE (Neg); URINE BENZODIAZEPINES SCREEN NEGATIVE (Neg); URINE CANNABINOID SCREEN NEGATIVE (Neg); URINE COCAINE SCREEN NEGATIVE (Neg); URINE METHADONE SCREEN NEGATIVE (Neg); URINE OPIATE SCREEN NEGATIVE (Neg); URINE PHENCYCLIDINE SCREEN NEGATIVE (Neg)
--- NOTE | 2018-06-03 04:06 | NUR ---
GOOGLE SEARCH FOR JOE KLEIN SHOWS POSSIBLE PHONE #'S OF [phone] AND A POSSIBLE ADDRESS OF [phone]
[2018-06-03 06:46] VITALS: BP 106/55
--- NOTE | 2018-06-03 06:46 | NUR ---
PATIENT ON BED ASLEEP,RR REGULAR.
--- NOTE | 2018-06-03 07:30 | NUR ---
ARRIVED TO ER OVERFLOW UNIT, AMBULATORY, ACCOMPANIED BY SECURITY AND STAFF MEMBERS. PATIENT IS ALERT AND TALKATIVE, REPEATEDLY STATING THAT SHE IS HUNGRY. INSTRUCTED TO GO TO BED ASSIGNMENT (BED#21) AND [facility] WILL BE HERE SHORTLY. COOPERATIVE AT PRESENT.
--- NOTE | 2018-06-03 08:50 | NUR ---
RESTING QUIETLY IN BED. AWAITING MENTAL HEALTH EVALUATION FROM [facility]. NO DISTRESS NOTED AT THIS TIME.
--- NOTE | 2018-06-03 13:09 | NUR ---
KAREN FROM [facility] SPOKE WITH PATIENT ABOUT DISPOSITION TO [facility]. PATIENT AGREEABLE WITH PLAN AND IS WILLING TO GO AFTER EATING LUNCH.
--- NOTE | 2018-06-03 13:40 | NUR ---
CONSUMED REGULAR DIET LUNCH 100% AND RETAINED. CLOTHING AND BELONGINGS RETURNED TO PATIENT AND PATIENT IS GETTING DRESSED FOR DC. ALERT AND TALKATIVE. CAB CALLED AND TAKEN TO LOBBY WITH BELONGINGS AND SACK LUNCH, IN GOOD CONDITION.
== END 2018-06-03 13:40 | disposition home or self-care (01) ==
LOC: ER 21:02
DX: F03.90 Unspecified dementia, unspecified severity, without behavioral disturbance, psychotic disturbance, mood disturbance, and anxiety (principal); E78.00 Pure hypercholesterolemia, unspecified; I10 Essential (primary) hypertension; I25.2 Old myocardial infarction; J44.9 Chronic obstructive pulmonary disease, unspecified; Z90.89 Acquired absence of other organs; Z88.5 Allergy status to narcotic agent; Z88.0 Allergy status to penicillin; Z79.899 Other long term (current) drug therapy; Z60.2 Problems related to living alone; Z56.0 Unemployment, unspecified; Z59.0 Homelessness
CPT/HCPCS: 36415; 70450; 71045; 74176; 80053; 80305; 80320; 81001; 83690; 84443; 85025; 99285; P9612

== ENCOUNTER 2018-06-05 17:24 | Emergency (ER) | payer MEDICARE, MEDICAID ==
[~2018-06-05] VITALS: Ht 152.4 cm; Wt 68.2 kg
[2018-06-05] MEDS ORDERED: HYDR28CR14 TOP (19:23)
[2018-06-05 19:34] VITALS: BP 127/71
== END 2018-06-05 19:37 | disposition home or self-care (01) ==
LOC: ER 17:24
DX: R21 Rash and other nonspecific skin eruption (principal); I10 Essential (primary) hypertension; L53.8 Other specified erythematous conditions; I25.2 Old myocardial infarction; E78.00 Pure hypercholesterolemia, unspecified; J44.9 Chronic obstructive pulmonary disease, unspecified; Z56.0 Unemployment, unspecified; Z59.0 Homelessness; Z88.6 Allergy status to analgesic agent; Z88.0 Allergy status to penicillin; Z88.5 Allergy status to narcotic agent
CPT/HCPCS: 99283

== ENCOUNTER 2018-06-30 17:41 | Emergency (ER) | payer MEDICARE, MEDICAID ==
[~2018-06-30] VITALS: Ht 152.4 cm; Wt 70.5 kg
[~2018-06-30 17:41] MED LIST changes: +HYDR28CR14 TOP
[2018-06-30] MEDS ORDERED: POLY119P2 PO (21:04)
--- NOTE | 2018-06-30 21:35 | NUR ---
After pt stated that she had family who were able to pick her up and take her home, pt revealed that she is homeless and wants a taxi voucher to [place]. Pt informed that she can be given a taxi voucher to within 30 minutes and 30 miles of current location. [facility] so she can fill out her Miralax prescription. [email or web address] contacted and pt waiting for transport in [facility].
[2018-06-30 21:37] VITALS: BP 145/89
== END 2018-06-30 21:55 | disposition home or self-care (01) ==
LOC: ER 17:42
DX: K62.5 Hemorrhage of anus and rectum (principal); E78.00 Pure hypercholesterolemia, unspecified; I10 Essential (primary) hypertension; I25.2 Old myocardial infarction; J44.9 Chronic obstructive pulmonary disease, unspecified; Z56.0 Unemployment, unspecified; Z59.0 Homelessness; Z60.2 Problems related to living alone; Z88.6 Allergy status to analgesic agent; Z88.0 Allergy status to penicillin; Z79.899 Other long term (current) drug therapy; Z87.440 Personal history of urinary (tract) infections; Z87.442 Personal history of urinary calculi; Z98.890 Other specified postprocedural states; Z90.81 Acquired absence of spleen
CPT/HCPCS: 99283

== ENCOUNTER 2018-07-10 16:36 | Emergency (ER) | payer MEDICARE, MEDICAID ==
[~2018-07-10] VITALS: Ht 152.4 cm; Wt 70.5 kg
[~2018-07-10 16:36] MED LIST changes: +POLY119P2 PO
[2018-07-10 17:02] VITALS: BP 152/134
[2018-07-10] MEDS ORDERED: NEOM28.37 TOP (17:12)
== END 2018-07-10 17:28 | disposition home or self-care (01) ==
LOC: ER 16:36
DX: S90.822A Blister (nonthermal), left foot, initial encounter (principal); S90.821A Blister (nonthermal), right foot, initial encounter; E78.00 Pure hypercholesterolemia, unspecified; I10 Essential (primary) hypertension; I25.2 Old myocardial infarction; J44.9 Chronic obstructive pulmonary disease, unspecified; Z98.890 Other specified postprocedural states; Z60.2 Problems related to living alone; Z59.0 Homelessness; Z56.0 Unemployment, unspecified; Z88.5 Allergy status to narcotic agent; Z88.0 Allergy status to penicillin; Z79.899 Other long term (current) drug therapy; X58.XXXA Exposure to other specified factors, initial encounter; Y93.89 Activity, other specified; Y92.89 Other specified places as the place of occurrence of the external cause; Y99.8 Other external cause status
CPT/HCPCS: 99283

== ENCOUNTER 2018-07-24 20:07 | Emergency (ER) | payer MEDICARE, MEDICAID ==
[~2018-07-24] VITALS: Ht 152.4 cm; Wt 70.5 kg
[~2018-07-24 20:07] MED LIST changes: +NEOM28.37 TOP
[2018-07-24 21:00] VITALS: BP 169/71
[2018-07-24 21:30] LABS: CLARITY,URINE CLEAR (Clear); COLOR,URINE YELLOW (Yellow); GLUCOSE, URINE NEGATIVE (Neg); KETONES,URINE NEGATIVE (Neg); LEUKOCYTE ESTERASE ,URINE NEGATIVE (Neg); NITRITES, URINE NEGATIVE (Neg); OCCULT BLOOD,URINE NEGATIVE (Neg); PROTEIN,URINE 30 mg/dl (Neg); UROBILINOGEN,URINE 0.2 E.U/dL (0.2-1.0)
[2018-07-24 21:37] LABS: UA COLLECTION TYPE CLN CATCH MIDSTREAM
[2018-07-24 21:39] LABS: BACTERIA,URINE FEW /HPF (Neg); MUCUS STRANDS FEW /LPF (Neg); RBC,URINE 0-2 /HPF (0-2); SQUAMOUS EPITHELIAL CELL,UR MODERATE /LPF (FEW); WBC,URINE 0-4 /HPF (0-4)
== END 2018-07-24 22:04 | disposition home or self-care (01) ==
LOC: ER 20:07
DX: R30.0 Dysuria (principal); I10 Essential (primary) hypertension; E78.00 Pure hypercholesterolemia, unspecified; I25.2 Old myocardial infarction; J44.9 Chronic obstructive pulmonary disease, unspecified; Z56.0 Unemployment, unspecified; Z59.0 Homelessness; Z88.6 Allergy status to analgesic agent; Z88.0 Allergy status to penicillin
CPT/HCPCS: 81001; 99283

== ENCOUNTER 2018-07-27 19:49 | Emergency (ER) | payer MEDICARE, MEDICAID ==
[~2018-07-27] VITALS: Ht 167.6 cm; Wt 78.0 kg
[2018-07-27 19:54] VITALS: BP 135/72
== END 2018-07-27 20:28 | disposition home or self-care (01) ==
LOC: ER 19:58
DX: R07.89 Other chest pain (principal); R06.02 Shortness of breath; E78.00 Pure hypercholesterolemia, unspecified; I10 Essential (primary) hypertension; I25.2 Old myocardial infarction; J44.9 Chronic obstructive pulmonary disease, unspecified; Z87.442 Personal history of urinary calculi; Z98.890 Other specified postprocedural states; Z60.2 Problems related to living alone; Z59.0 Homelessness; Z56.0 Unemployment, unspecified; Z88.5 Allergy status to narcotic agent; Z88.0 Allergy status to penicillin; Z79.899 Other long term (current) drug therapy
CPT/HCPCS: 93005; 99283

== ENCOUNTER 2018-08-04 19:32 | Emergency (ER) | payer MEDICARE, MEDICAID ==
[~2018-08-04] VITALS: Ht 152.4 cm; Wt 61.6 kg
[2018-08-04 19:45] VITALS: BP 161/73
--- NOTE | 2018-08-04 22:13 | NUR ---
AFTER MULTIPLE ASKS TO RETURN TO ROOM BY STAFF, AND PT REFUSING, PT WAS ESCORTED OUT WITH SECURITY DUE TO REFUSAL TO FOLLOW RULES. PT WAS SEEN BY PA IN PARKING LOT. PA SEEN, TREATED AND DC'D PT FROM PARKING LOT.
== END 2018-08-04 22:15 | disposition home or self-care (01) ==
LOC: ER 19:32
DX: Z59.9 Problem related to housing and economic circumstances, unspecified (principal); E78.00 Pure hypercholesterolemia, unspecified; I10 Essential (primary) hypertension; I25.2 Old myocardial infarction; J44.9 Chronic obstructive pulmonary disease, unspecified; Z88.5 Allergy status to narcotic agent; Z88.0 Allergy status to penicillin; Z79.899 Other long term (current) drug therapy; Z59.0 Homelessness; Z60.2 Problems related to living alone; Z56.0 Unemployment, unspecified
CPT/HCPCS: 99283